=== PATIENT | female | born 1970 | race Two or more races ===

== ENCOUNTER 2021-11-06 04:04 | Emergency (ER) | payer OTHER ==
[~2021-11-06] VITALS: Ht 157.5 cm; Wt 80.0 kg
[2021-11-06 04:04] VITALS: BP 107/50
== END 2021-11-06 06:19 | disposition left against medical advice (07) ==
LOC: ER 04:04
DX: R21 Rash and other nonspecific skin eruption (principal); L29.9 Pruritus, unspecified; L50.9 Urticaria, unspecified; Z53.21 Procedure and treatment not carried out due to patient leaving prior to being seen by health care provider